=== PATIENT | female | born 1980 | race Caucasian/White ===

== ENCOUNTER 2019-06-15 00:56 | Emergency (ER) | payer SELFPAY | END 2019-06-15 01:11 | disposition home or self-care (01) | LOC: BURERS 00:56 | DX: K04.7 Periapical abscess without sinus (principal); K02.9 Dental caries, unspecified; F41.9 Anxiety disorder, unspecified; F32.9 Major depressive disorder, single episode, unspecified; F17.210 Nicotine dependence, cigarettes, uncomplicated | CPT/HCPCS: 99282 ==